=== PATIENT | male | born 1990 | race African-American/Black ===

== ENCOUNTER 2021-03-08 05:02 | Day surgery (SDC) | payer OTHER ==
[2021-03-04 15:23] VITALS: BMI 33.5
[2021-03-08] MEDS ORDERED: LIDOCAINE HCL 1%, 10 MG/ML (20ML VIAL) ONE (10:36)
[2021-03-08] MEDS ORDERED: BUPIVACAINE HCL/PF 0.5% (5MG/ML) 10 ML VIAL ONE (10:37)
[2021-03-08] MEDS ORDERED: PROPOFOL 20 ML ONE (10:49)
[2021-03-08] MEDS ORDERED: MIDAZOLAM HCL 2 MG/2 ML SINGLE DOSE VIAL ONE (10:49)
[2021-03-08] MEDS ORDERED: ceFAZolin SODIUM 1 GM VIAL IVPB ONE (11:19)
[2021-03-08] MEDS ORDERED: LIDOCAINE HCL 1%, 10 MG/ML (20ML VIAL) SQ ONE (11:26)
[2021-03-08] MEDS ORDERED: BUPIVACAINE HCL/PF 0.5% (5MG/ML) 10 ML VIAL IJ ONE (11:26)
[2021-03-08] MEDS ORDERED: DEXAMETHASONE SOD PHOSPHATE 4 MG/1 ML VIAL ONE (12:12)
[2021-03-08] MEDS ORDERED: ceFAZolin SODIUM 1 GM VIAL ONE ×2 (12:12)
[2021-03-08] MEDS ORDERED: KETOROLAC TROMETHAMINE 30 MG/1 ML VIAL ONE (12:13)
[2021-03-08] MEDS ORDERED: ONDANSETRON 4 MG/2 ML VIAL IVPUSH PRN (12:26)
[2021-03-08] MEDS ORDERED: PROMETHAZINE HCL 25 MG/1 ML VIAL IVPUSH PRN (12:26)
[2021-03-08] MEDS ORDERED: LACTATED RINGERS SOLUTION 1,000 ML IV SCH (12:30)
[2021-03-08 13:58] VITALS: TEMP 97.1
[2021-03-08 14:26] VITALS: BP 112/56; PULSE 83
== END 2021-03-08 14:15 | disposition home or self-care (01) ==
LOC: JASU-SURG 05:02
PROVIDERS: ATTEND Urology
PROC: 0VTQ0ZZ Resection of Bilateral Vas Deferens, Open Approach (ICD-10-PCS; principal; 2021-03-08 10:00)
DX: Z30.2 Encounter for sterilization (principal)
CPT/HCPCS: 88302-TC; 94760